=== PATIENT | female | born 1990 | race Caucasian/White ===

== ENCOUNTER → 2017-02-14 | Outpatient (CLI) | payer OTHER ==
[2017-02-15 17:09] LABS: HCV ANTIBODY <0.1 s/co ratio (0.0-0.9)
== END | disposition home or self-care (01) ==
LOC: LAB 12:29
PROVIDERS: ATTEND Dentist Oral and Maxillofacial Surgery
DX: Z20.9 Contact with and (suspected) exposure to unspecified communicable disease (principal)
CPT/HCPCS: 36415; 86701; 86702; 86703; 86803; 87340; 87535

== ENCOUNTER → 2019-02-19 | Outpatient (CLI) | payer BC ==
--- NOTE | 2019-02-19 15:52 | RAD ---
EXAM: Abdomen, single view. HISTORY: Pain. COMPARISON: None. FINDINGS: A frontal view of the abdomen is obtained. There is gas and stool within the colon. No abnormally dilated loop of bowel seen. There are few pelvic phleboliths. There may be an incidental bone island within the right iliac bone. IMPRESSION: Nonobstructive bowel gas pattern. Electronically signed by: Ruth Ann Gaspar MD (02/19/2019 3:50 PM) [id number]
== END | disposition home or self-care (01) ==
LOC: PMG 14:52
PROVIDERS: ATTEND Registered Nurse
DX: K59.09 Other constipation (principal); I87.8 Other specified disorders of veins
CPT/HCPCS: 74018